=== PATIENT | female | born 1960 | race African-American/Black ===

== ENCOUNTER → 2021-08-01 | Day surgery (SDC) | payer OTHER ==
[~2021-08-01] VITALS: Ht 182.9 cm; Wt 106.1 kg
[~2021-08-01] MED LIST: AMLODIPINE BESYL5 MG PO; APPLE CIDER VI1 EACH PO; ASPIRIN EC81 MG PO; BIOTIN1000 MCG PO; CALCIUM500 MG PO; CO Q-10200 MG PO; CYCLOBENZAPRINE10 MG PO; GARLIC400 MG PO; LISINOPRIL-HCT1 EAC1 PO; PRAVASTATIN SOD10 M1 PO; VITAMIN D3125 MC2 PO; WOMEN'S DAILY1 EAC1 PO
== END | disposition home or self-care (01) ==
LOC: FAS 06:24
DX: Z12.11 Encounter for screening for malignant neoplasm of colon (principal); I10 Essential (primary) hypertension; M19.90 Unspecified osteoarthritis, unspecified site; E78.00 Pure hypercholesterolemia, unspecified; J30.9 Allergic rhinitis, unspecified; Z79.899 Other long term (current) drug therapy
CPT/HCPCS: J2704; J7120